=== PATIENT | female | born 1970 | race Hispanic/Latino ===

== ENCOUNTER 2016-10-18 17:45 | Emergency (ER) | payer BC ==
[2016-10-18 17:45] VITALS: BMI 21.5
[2016-10-18 19:28] VITALS: BP 158/74; PULSE 88; RESP 16; TEMP 98.6; O2SAT 98
[2016-10-18] MEDS ORDERED: Tmp-Smz 800 mg-160 mg DS Tab PO STA (19:35)
--- NOTE | 2016-10-18 19:40 | C.PDOC ---
History Of Present Illness 46 y/o female presents to ED with complaints of right foot pain and swelling for 1 week. Patient states she is unsure how the symptoms and reports for 2 days foot has become increasingly warm. Patient denies trauma, fever, numbness, weakness or any other complaints at this time. Time Seen by Provider: 10/18/16 18:06 Chief Complaint (Nursing): Lower Extremity Problem/Injury History Per: Patient History/Exam Limitations: no limitations Onset/Duration Of Symptoms: Days Current Symptoms Are (Timing): Still Present Past Medical History Reviewed: Historical Data, Nursing Documentation, Vital Signs Vital Signs: Last Vital Signs Temp 98.6 F 10/18/16 19:26 Pulse 88 10/18/16 19:26 Resp 16 10/18/16 19:26 BP 158/74 H 10/18/16 19:26 Pulse Ox 98 10/18/16 20:54 - Medical History PMH: Depression, Diabetes, Rheumatoid Arthritis - [facility] Procedures APPLICATION OF SPLINT (10/30/13) DRAINAGE OF PHARYNX, OPEN APPROACH (08/25/15) DRAINAGE OF TONSILS, OPEN APPROACH (08/25/15) OTHER LOCAL DESTRUC SKIN (10/19/06) Family History: States: Unknown Family Hx, Diabetes - Social History Hx Tobacco Use: No Hx Alcohol Use: No Hx Substance Use: No - Immunization History Hx Tetanus Toxoid Vaccination: No Hx Influenza Vaccination: No Hx Pneumococcal Vaccination: No Review Of Systems Except As Marked, All Systems Reviewed And Found Negative. Constitutional: Negative for: Fever, Chills Cardiovascular: Negative for: Chest Pain Respiratory: Negative for: Shortness of Breath Musculoskeletal: Positive for: Foot Pain. Negative for: Leg Pain Neurological: Negative for: Weakness, Numbness Physical Exam - Physical Exam Appears: Non-toxic, No Acute Distress Skin: Normal Color, Warm Head: Atraumatic, Normacephalic Eye(s): bilateral: Normal Inspection Oral Mucosa: Moist Extremity: Tenderness (To dorsal right foot), Capillary Refill (<2 seconds), Swelling (to dorsal foot), Other (5 x 5 cm area of erythema and warmth to dorsal right foot, no signs of bite or trauma) Pulses: Left Dorsalis Pedis: Normal, Right Dorsalis Pedis: Normal Neurological/Psych: Oriented x3, Normal Motor, Normal Sensation Gait: Steady ED Course And Treatment O2 Sat by Pulse Oximetry: 98 (RA) Pulse Ox Interpretation: Normal - Other Rad rt foot X-Ray: Interpreted by Me, Viewed By Me Interpretation: Healed Metatarsal fracture, swelling to the mid-foot, ? foreign body vs. chip fx at the distal 5th metatarsal. Disposition - Disposition Referrals: Andrzej Randall DPM [[facility]] - [facility]iatry [facility] [Outside] Disposition: HOME/ ROUTINE Disposition Time: 19:41 Condition: GOOD Additional Instructions: Follow up with the medical doctor within 1-2 days. Return if worsened Prescriptions: Cephalexin [cephalexin] 500 mg PO BID #20 cap Ibuprofen [Motrin] 600 mg PO TID #21 tab Sulfamethoxazole/Trimethoprim [Bactrim DS 800 mg-160 mg] 1 tab PO BID #19 tab Instructions: Cellulitis (ED) - Clinical Impression Clinical Impression: Cellulitis - Scribe Statement The provider has reviewed the documentation as recorded by the Aniya Serrano All medical record entries made by the Lashondaibandressa were at my direction and personally dictated by me. I have reviewed the chart and agree that the record accurately reflects my personal performance of the history, physical exam, medical decision making, and the department course for this patient. I have also personally directed, reviewed, and agree with the discharge instructions and disposition.
[2016-10-18] MEDS ORDERED: Tmp-Smz 800 mg-160 mg DS Tab ONE (19:43)
--- NOTE | 2016-10-19 11:42 | RAD ---
PROCEDURE: Right Foot Radiographs. HISTORY: swelling , pain and redness to the dorsal R foot COMPARISON: None. FINDINGS: BONES: No acute fracture. No subluxation or dislocation. There is an old healed fracture of the 3rd metatarsal bone at the mid diaphysis. Heterotopic linear calcification or potential retained and foreign body is seen in the soft tissues immediately lateral to the proper distal metaphysis of the 5th metatarsal bone. No emphysema soft tissues are identified. No suspicious lytic or blastic change. JOINTS: Moderate hallux valgus deformity with severe osteoarthritis at the 1st metatarsal-phalangeal joint. Lesser degenerate changes seen throughout the interphalangeal joints diffusely. SOFT TISSUES: Mild proximal to midfoot dorsal soft tissue edema is identified without emphysematous change. Vickey, please see comments above in bone section regarding tiny potential retained rated foreign body at the forefoot. OTHER FINDINGS: None. IMPRESSION: 1. No acute fracture or dislocation or suspicious lytic change. An old healed fracture of the mid diaphysis right 3rd metatarsal bone is noted. 2. Heterotopic linear calcification versus tiny retained radiodense foreign body lateral forefoot lateral to the distal portion 5th metatarsal bone. 3. Moderate hallux valgus deformity. 4. Mild dorsal forefoot and midfoot edema. 5. Moderate osteoarthritis. .
== END 2016-10-18 19:59 | disposition home or self-care (01) ==
LOC: C.ER 17:45
DX: L03.115 Cellulitis of right lower limb (principal)

== ENCOUNTER 2016-11-09 10:01 | Observation (INO) | payer BC | END 2016-11-09 15:50 | disposition home or self-care (01) | LOC: C.ER 10:01 → C.9OBSV 10:15 | PROVIDERS: ADMIT Emergency Medicine | CPT/HCPCS: 36415; 80048; 81001; 82948; 85025; 87045; 87230; 96360; 96372; 96374; G0378; J0500; J2405; J7040 ==

== ENCOUNTER 2017-06-12 20:29 | Emergency (ER) | payer BC ==
[2017-06-12 20:29] VITALS: BMI 21.5
[2017-06-12 21:03] VITALS: BP 162/89; PULSE 96; RESP 20; TEMP 97.9; O2SAT 98
--- NOTE | 2017-06-12 22:18 | C.PDOC ---
History Of Present Illness 47 year old female presents to the ER with a complaint of right sided throat pain, associated with an itching sensation to the right ear for the past 2 days. Patient states she has a Hx of tonsilar abscess and is concerned about a recurrence. Denies fever or pain with swallowing. Time Seen by Provider: 06/12/17 22:05 Chief Complaint (Nursing): ENT Problem History Per: Patient History/Exam Limitations: None Onset/Duration Of Symptoms: Days Current Symptoms Are (Timing): Still Present Symptoms Have Been: Continuous Past Medical History Reviewed: Historical Data, Nursing Documentation, Vital Signs Vital Signs: Last Vital Signs Temp 97.9 F 06/12/17 20:57 Pulse 96 H 06/12/17 20:57 Resp 20 06/12/17 20:57 BP 162/89 H 06/12/17 20:57 Pulse Ox 98 06/12/17 22:18 - Medical History PMH: Depression, Diabetes, Rheumatoid Arthritis - [facility] Procedures APPLICATION OF SPLINT (10/30/13) DRAINAGE OF PHARYNX, OPEN APPROACH (08/25/15) DRAINAGE OF TONSILS, OPEN APPROACH (08/25/15) OTHER LOCAL DESTRUC SKIN (10/19/06) Family History: States: Diabetes - Social History Hx Tobacco Use: No Hx Alcohol Use: No Hx Substance Use: No - Immunization History Hx Tetanus Toxoid Vaccination: Yes (2014) Hx Influenza Vaccination: No Hx Pneumococcal Vaccination: No Review Of Systems Constitutional: Negative for: Fever ENT: Positive for: Throat Pain. Negative for: Other (Pain with swallowing) Physical Exam - Physical Exam Appears: Non-toxic, No Acute Distress Skin: Normal Color, Warm, Dry Head: Atraumatic, Normacephalic, No Swelling (Facial) Eye(s): bilateral: Normal Inspection Ear(s): Bilateral: Normal Oral Mucosa: Moist Throat: Normal, No Erythema, No Exudate, Other (Normal tonsils, uvula midline) Neck: Normal, Supple, No Other (Swelling) Neurological/Psych: Oriented x3, Normal Speech ED Course And Treatment O2 Sat by Pulse Oximetry: 98 (Room air) Pulse Ox Interpretation: Normal Progress Note: Patient is resting comfortably in the ER in no acute distress; patient educated on conservative treatment and given return precautions. Patient understands and agrees with plan. 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 - Scribe Statement The provider has reviewed the documentation as recorded by the Scribandressa Coreas All medical record entries made by the Lashondaibandressa were at my direction and personally dictated by me. I have reviewed the chart and agree that the record accurately reflects my personal performance of the history, physical exam, medical decision making, and the department course for this patient. I have also personally directed, reviewed, and agree with the discharge instructions and disposition.
== END 2017-06-12 22:26 | disposition home or self-care (01) ==
LOC: SUPCPDRO 20:29 → C.ER 20:29
DX: J02.9 Acute pharyngitis, unspecified (principal); E11.9 Type 2 diabetes mellitus without complications; M06.9 Rheumatoid arthritis, unspecified